=== PATIENT | male | born 1945 | race Caucasian/White ===

== ENCOUNTER 2020-07-03 02:05 | Emergency (ER) | payer OTHER ==
[~2020-07-03] VITALS: Ht 182.9 cm; Wt 82.8 kg
[~2020-07-03 02:05] MED LIST: ACID REFLUX MED PO; PAIN PILL PO; [UNRECOGNIZED DRUG - REMARK] PO
[2020-07-03] MEDS ORDERED: ACETAMINOPHEN500 M5 PO (02:25)
[2020-07-03] MEDS ORDERED: LIPITOR20 M2 PO (02:26)
[2020-07-03] MEDS ORDERED: MAALOX MAXIMUM355 ML PO (02:26)
[2020-07-03] MEDS ORDERED: OMEPRAZOLE20 M2 PO (02:27)
[2020-07-03] MEDS ORDERED: NEURONTIN300 M1 PO (02:27)
[2020-07-03] MEDS ORDERED: VITAMIN D PO (02:28)
[2020-07-03] MEDS ORDERED: CALCIUM 500 +1 EAC1 PO (02:28)
[2020-07-03] MEDS ORDERED: FLOMAX0.4 MG PO (02:28)
[2020-07-03] MEDS ORDERED: SILDENAFIL CIT100 MG PO (02:29)
[2020-07-03] MEDS ORDERED: ARICEPT10 M1 PO (02:29)
[2020-07-03] MEDS ORDERED: VITAMIN C500 M7 PO (02:30)
[2020-07-03] MEDS ORDERED: FERROUS SU325 MG/TAB PO (02:30)
[2020-07-03 02:50] LABS: HEMATOCRIT 42.7 % (42.0-52.0); MEAN CELL VOLUME 89 fl (78-100); MEAN CORPUSCULAR HEMOGLOBIN 29 pg (27-31); MEAN CORPUSCULAR HGB CONC 33 g/dL (33-37); MEAN PLATELET VOLUME 8.9 fl (7.4-10.4); PLATELET COUNT 288 K/mm3 (130-400); RED BLOOD COUNT 4.79 M/mm3 (4.20-5.60); RED CELL DISTRIBUTION WIDTH 13.1 % (11.5-14.5); WHITE BLOOD COUNT 13.2 K/mm3 (4.8-10.8)
[2020-07-03 03:01] LABS: ALBUMIN 3.9 g/dL (3.4-4.8); POTASSIUM 3.9 mmol/L (3.5-5.1)
[2020-07-03 03:03] LABS: CALCIUM 9.2 mg/dL (8.3-10.5)
[2020-07-03 03:04] LABS: TOTAL PROTEIN 6.6 g/dL (6.2-8.1)
[2020-07-03 03:06] LABS: TOTAL BILIRUBIN 1.4 mg/dL (0.2-1.2)
[2020-07-03 03:26] LABS: BAND 10 % (0-10); LYMPHOCYTE 4 % (20-51); MONOCYTE 2 % (3-10); NEUTROPHILS 82 % (42-75)
[2020-07-03 03:27] LABS: ACANTHROCYTES 1+; OVALOCYTES 1+
[2020-07-03 06:05] LABS: PH-URINE 6.5 (5.0 - 8.0); URINE APPEARANCE CLEAR; URINE BILIRUBIN 1+ (NEGATIVE); URINE BLOOD NEGATIVE (NEGATIVE); URINE COLOR YELLOW; URINE GLUCOSE NEGATIVE (NEGATIVE); URINE KETONE NEGATIVE (NEGATIVE); URINE LEUKOCYTE ESTERASE NEGATIVE (NEGATIVE); URINE NITRATE NEGATIVE (NEGATIVE); URINE PROTEIN(semi-quant) TRACE mg/dL (NEGATIVE); URINE UROBILINOGEN NORMAL (NORMAL); URINE WBC 0-1 /hpf (0-3)
[2020-07-03 07:05] VITALS: BP 120/45
== END 2020-07-03 07:05 | disposition short-term general hospital (02) ==
LOC: ED 02:05
PROVIDERS: Physician Assistant
DX: K85.90 Acute pancreatitis without necrosis or infection, unspecified (principal); J18.1 Lobar pneumonia, unspecified organism; K80.50 Calculus of bile duct without cholangitis or cholecystitis without obstruction; U07.1 COVID-19; K21.9 Gastro-esophageal reflux disease without esophagitis; E78.5 Hyperlipidemia, unspecified; Z79.899 Other long term (current) drug therapy
CPT/HCPCS: J1885; J2405; J2543; J2550; J3010; J3360; J7030; Q9967

== ENCOUNTER 2020-07-13 16:14 | Observation (INO) | payer OTHER ==
[~2020-07-13] VITALS: Ht 182.9 cm; Wt 80.1 kg
[~2020-07-13 16:14] MED LIST changes: +ACETAMINOPHEN500 M5 PO; +ARICEPT10 M1 PO; +CALCIUM 500 +1 EAC1 PO; +FERROUS SU325 MG/TAB PO; +FLOMAX0.4 MG PO; +LIPITOR20 M2 PO; +MAALOX MAXIMUM355 ML PO; +NEURONTIN300 M1 PO; +OMEPRAZOLE20 M2 PO; +SILDENAFIL CIT100 MG PO; +VITAMIN C500 M7 PO; +VITAMIN D PO
[2020-07-13 17:48] LABS: HEMATOCRIT 41.7 % (42.0-52.0); HEMOGLOBIN 14.3 g/dL (13.5-18.0); MEAN CELL VOLUME 86 fl (78-100); MEAN CORPUSCULAR HEMOGLOBIN 30 pg (27-31); MEAN CORPUSCULAR HGB CONC 34 g/dL (33-37); MEAN PLATELET VOLUME 9.2 fl (7.4-10.4); PLATELET COUNT 232 K/mm3 (130-400); RED BLOOD COUNT 4.85 M/mm3 (4.20-5.60)
[2020-07-13 17:49] LABS: ALBUMIN 2.7 g/dL (3.4-4.8); CALCIUM 8.4 mg/dL (8.3-10.5); POTASSIUM 3.3 mmol/L (3.5-5.1); TOTAL PROTEIN 5.6 g/dL (6.2-8.1)
[2020-07-13 17:51] LABS: TOTAL BILIRUBIN 2.4 mg/dL (0.2-1.2)
[2020-07-13 17:54] LABS: BAND 1 % (0-10); LYMPHOCYTE 2 % (20-51); MONOCYTE 4 % (3-10); NEUTROPHILS 93 % (42-75)
[2020-07-13 19:55] LABS: URINE APPEARANCE HAZY; URINE BILIRUBIN 1+ (NEGATIVE); URINE BLOOD 50 ery/uL (NEGATIVE); URINE COLOR YELLOW; URINE GLUCOSE NEGATIVE (NEGATIVE); URINE KETONE 1+ (NEGATIVE); URINE LEUKOCYTE ESTERASE NEGATIVE (NEGATIVE); URINE NITRATE NEGATIVE (NEGATIVE); URINE PROTEIN(semi-quant) TRACE mg/dL (NEGATIVE); URINE UROBILINOGEN NORMAL (NORMAL)
[2020-07-13 19:56] LABS: URINE MUCUS PRESENT (NOT PRESENT)
[2020-07-13 22:52] VITALS: BP 144/92
[2020-07-14 02:17] VITALS: BP 111/76
[2020-07-14 05:22] VITALS: BP 151/69
[2020-07-14 06:41] LABS: HEMOGLOBIN 12.6 g/dL (13.5-18.0); MEAN CELL VOLUME 87 fl (78-100); MEAN CORPUSCULAR HEMOGLOBIN 29 pg (27-31); MEAN CORPUSCULAR HGB CONC 33 g/dL (33-37); MEAN PLATELET VOLUME 8.9 fl (7.4-10.4); PLATELET COUNT 246 K/mm3 (130-400); RED BLOOD COUNT 4.37 M/mm3 (4.20-5.60); RED CELL DISTRIBUTION WIDTH 14.1 % (11.5-14.5); WHITE BLOOD COUNT 19.1 K/mm3 (4.8-10.8)
[2020-07-14 07:27] LABS: NEUTROPHILS 94 % (42-75)
[2020-07-14 07:28] LABS: LYMPHOCYTE 2 % (20-51); MONOCYTE 4 % (3-10)
[2020-07-14 07:49] LABS: ALBUMIN 2.4 g/dL (3.4-4.8); CALCIUM 7.7 mg/dL (8.3-10.5); POTASSIUM 3.5 mmol/L (3.5-5.1)
[2020-07-14 09:56] VITALS: BP 152/94
[2020-07-14 14:23] VITALS: BP 114/82
[2020-07-14 14:32] VITALS: BP 114/82
== END 2020-07-14 15:05 | disposition short-term general hospital (02) ==
LOC: ED 16:14 → MED/SURG 22:00
PROVIDERS: ADMIT Family Medicine
DX: K92.2 Gastrointestinal hemorrhage, unspecified (principal); K81.0 Acute cholecystitis; K21.9 Gastro-esophageal reflux disease without esophagitis; F03.90 Unspecified dementia, unspecified severity, without behavioral disturbance, psychotic disturbance, mood disturbance, and anxiety; Z20.828 Contact with and (suspected) exposure to other viral communicable diseases
CPT/HCPCS: C9113; G0378; J2270; J2405; J2543; J3480; J7030

== ENCOUNTER 2021-03-13 08:49 | Outpatient (RCR) | payer OTHER | END 2021-05-14 17:00 | disposition still patient (30) | LOC: PT 08:49 | DX: M12.812 Other specific arthropathies, not elsewhere classified, left shoulder (principal) ==

== ENCOUNTER 2021-04-21 09:22 | Outpatient (RCR) | payer OTHER | END 2021-05-14 17:00 | disposition home or self-care (01) | LOC: OT 09:22 | DX: M12.812 Other specific arthropathies, not elsewhere classified, left shoulder (principal) ==

== ENCOUNTER → 2022-02-08 | Outpatient (CLI) | payer OTHER | LOC: RAD 14:51 | DX: G62.89 Other specified polyneuropathies (principal); R26.9 Unspecified abnormalities of gait and mobility; M54.17 Radiculopathy, lumbosacral region ==